=== PATIENT | female | born 1970 | race Two or more races ===

== ENCOUNTER 2024-03-05 12:29 | Outpatient (REF) | payer OTHER, SELFPAY ==
--- NOTE | ~2024-03-05 | XR_ITS ---
EXAMINATION: XR PELVIS CLINICAL INFORMATION: Pelvic and hip pain COMPARISON: None available. TECHNIQUE: AP view of the pelvis. FINDINGS: No fracture. Hip joint spaces are maintained. Alignment is anatomic. Sacroiliac joints and pubic symphysis are normal. No abnormal soft tissue calcifications. XR/XR pelvis 1-2V IMPRESSION: Normal pelvis.
== END 2024-03-05 12:30 | disposition home or self-care (01) ==
LOC: HO.HOSX 12:29
PROVIDERS: Visit Provider Orthopaedic Surgery
DX: M25.559 Pain in unspecified hip (principal)
CPT/HCPCS: 72170

== ENCOUNTER 2024-03-05 14:22 | Outpatient (AMB) | payer OTHER, SELFPAY ==
--- NOTE | 2024-03-05 14:23 | MHC.OFFVIS ---
Vital Signs 03/05/24 14:50 Height 4 ft 11 in Weight 165 lb BMI 33.3 Intake Visit Reasons: N/P LT hip O.A pain Allergies No Known Allergies Allergy (Verified 03/05/24 14:50) HPI HPI N/P LT hip O.A pain : Details: Cristina is a 53 year old female who presents today for a new patient appointment with complaints of left hip pain. Patient reports that she was previously booked for a HORTENSIA with Sindi that was cancelled due to insurance. She was later seen with RAFFAELE, who injected the hip. The injection was not sufficiently helpful. She has pain with ADOL, pain increased with prolonged standing, walking and climbing. 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 Resp Other: No audible wheezing Effort & Inspection: normal respiratory effort Cardio Other: Radial pulse palpable with no rythmic abnormalities Back/Spine/Pelvis Cervical Spine: normal cervical lordosis Skin General skin exam: no rashes or lesions noted Neuro General: no focal motor deficits Extrem Other: Positive gait antalgia Positive Stinchfield left hip Positive impingement left hip Psych Appearance: grossly normal and well kempt Mental Status: mental status grossly normal Speech and movement: Normal speech and movement present Affect: normal affect Attitude: cooperative Results Reviewed Results Reviewed: I personally reviewed relevant radiographs. Severe left hip osteoarthritis Moderate right hip osteoarthritis Assessment & Plan Assessment & Plan (1) Osteoarthritis of left hip: Code(s): M16.12 - Unilateral primary osteoarthritis, left hip Category: Medical Plan: This is a 53-year-old woman with left hip osteoarthritis. This has been longstanding and not improved with conservative measures including therapy, NSAIDs and injections. She has been scheduled for arthroplasty but her insurance has changed and so she has been unable to get this done. Feels quality of her life is diminished. Based on her history, physical exam and x-rays I recommend hip arthroplasty. I explained the procedure to her. I explained the risks, benefits and alternatives including, but not limited to the risk of infection, dislocation, fracture as well as medical complications associated with surgery. She expressed understanding and we will proceed forward accordingly. Orders: Orders XR pelvis 1-2V 03/05/24 M25.559 - Pain in unspecified hip Coding Level of Care Code New Pt Level 4 (44650) Diagnoses Osteoarthritis of left hip M16.12
[2024-03-05 14:50] VITALS: BMI 33.3
== END 2024-03-05 15:30 | disposition home or self-care (01) ==
PROVIDERS: PCP Nurse Practitioner; Visit Provider Orthopaedic Surgery
DX: M16.12 Unilateral primary osteoarthritis, left hip (principal)
CPT/HCPCS: 99204

== ENCOUNTER → 2024-05-25 10:40 | Outpatient (BNVA) | payer OTHER, SELFPAY | PROVIDERS: PCP Nurse Practitioner | DX: Z01.818 Encounter for other preprocedural examination (principal) ==

== ENCOUNTER 2024-06-12 | Outpatient (REF) | payer OTHER, SELFPAY ==
[2024-06-12 10:04] VITALS: BP 159/83; PULSE 67; RESP 18; O2SAT 100; BMI 32.6
[2024-06-12 12:07] LABS: MRSA Nasal PCR NEGATIVE (Negative); SA Nasal PCR POSITIVE (Negative)
== END 2024-06-12 00:01 | disposition home or self-care (01) ==
LOC: HO.PAT
PROVIDERS: Physician Assistant; PCP Nurse Practitioner; Visit Provider Orthopaedic Surgery
DX: Z01.818 Encounter for other preprocedural examination (principal); M16.12 Unilateral primary osteoarthritis, left hip
CPT/HCPCS: 86850; 86900; 86901; 87640; 87641

== ENCOUNTER 2024-09-17 12:46 | Outpatient (AMB) | payer OTHER, SELFPAY ==
[2024-09-17 12:57] VITALS: BMI 32.6
--- NOTE | 2024-09-17 12:57 | A.OFFVIS_ITS ---
Vital Signs 09/17/24 12:57 Height 5 ft Weight 167 lb BMI 32.6 Intake Visit Reasons: L HORTENSIA: completed PT; NE request visit B4 surg Intake Note: Cristina is a 54 year old female who presents today for a follow up of her Left Hip OA, she is booked for Left HORTENSIA 12/04/24. Allergies No Known Allergies Allergy (Verified 05/25/24 11:03) HPI HPI L HORTENSIA: completed PT; NE request visit B4 surg: Details: This is here for her left hip. She has a hip replacement scheduled but wanted to ask some questions prior. She continues to have groin pain and be unable to ambulate comfortably. She has tried physical therapy and NSAIDs and injections and all these have been only briefly helpful. She feels the quality of her life is diminished. 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 Positive gait antalgia left hip. Dorsalis pedis pulse 2 +. Results Reviewed Results Reviewed: I personally reviewed relevant radiographs. There is femoral head over coverage with bony prominence of the head neck junction consistent with moderate osteoarthritis. Assessment & Plan Assessment & Plan (1) Osteoarthritis of left hip: Code(s): M16.12 - Unilateral primary osteoarthritis, left hip Category: Medical Plan: This is a 54-year-old woman with long, several years, of left hip pain. Injections and therapy and NSAIDs all help but only briefly. She feels she can not complete daily activities without pain and we have elected to proceed forward with hip replacement. I discussed with her the risks, benefits and alternatives to this. I explained the risk of infection, dislocation, fracture as well as medical complications associated with surgery. She expressed understanding and we will proceed forward accordingly. Coding Level of Care Code Est Pt Level 4 (67785) Diagnoses Osteoarthritis of left hip M16.12
== END 2024-09-17 15:11 | disposition home or self-care (01) ==
PROVIDERS: PCP Nurse Practitioner; Visit Provider Orthopaedic Surgery
DX: M16.12 Unilateral primary osteoarthritis, left hip (principal)
CPT/HCPCS: 99214

== ENCOUNTER 2024-11-30 14:10 | Outpatient (AMB) | payer OTHER, SELFPAY ==
--- NOTE | 2024-11-30 14:28 | A.OFFVIS_ITS ---
Vital Signs 11/30/24 14:29 Height 5 ft Weight 167 lb BMI 32.6 Intake Visit Reasons: Pre-Op: L HORTENSIA w/NE 12/05/24 Intake Note: Cristina is a 54 year old female who presents today for a pre-operative visit; scheduled for left total hip arthroplasty, DOS: 12/05/24. Consents reviewed and signed in office today. Allergies No Known Allergies Allergy (Verified 11/30/24 14:32) Medication List - Last Reconciled 11/30/24 by Gracie Pineda PA-C [Raised toilet seat As directed] [STEP STOOL As directed] walker Folding Front wheeled walker HPI Comments Details: Ms Weldon presents to the office today for preop visit. She is scheduled for left total hip arthroplasty with Dr. Staton. She continues to have ongoing pain and difficulty with ambulation in the left hip, which is affecting her quality of life; therefore, she has elected to move forward with surgery. [facility] Medical History Anxiety Osteoarthritis Vitamin D deficiency Arthritis Surgical History History of bladder suspension procedure Hx of umbilical hernia repair Hx of hysterectomy Social History (Updated 11/02/24 @ 14:09 by Germaine Bolden RN) Household Members Other:: brother Housing: House Are you a primary youth care professional to a significant other at home: No Do you presently have visiting nurse or other home services: No 75 years or older and lives alone: No Patient Tobacco Use Status: Current everyday Tobacco user Tobacco use type: Cigarette Cigarettes Per Day: 2 Second Hand Smoke Exposure: No Substance Use Type: Marijuana Current occupational status: employed 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 Review of Systems Const All systems reviewed & are unremarkable except as noted in HPI and below Physical Exam Vital Signs: BMI result Body Mass Index 32.6 Const General: cooperative, healthy appearing, comfortable, no acute distress, well developed and alert Orientation/consciousness: patient oriented x3 HEENT Head: Yes normal to inspection, Yes normocephalic and Yes atraumatic Eyes General: appearance normal, both eyes and all related structures Neck Neck: Yes normal visual inspection and Yes no lymphadenopathy Resp Effort & Inspection: normal respiratory effort and able to speak in complete sentences Cardio Rate: regular rate Peripheral pulses: Peripheral pulses 2+ throughout GI Inspection: Yes normal to inspection Palpation (GI): Soft to palpation Skin General skin exam: no rashes or lesions noted Neuro General: patient oriented x3 Extrem Other: Positive impingement test left hip. Positive gait antalgia left hip. Dorsalis pedis pulse 2 +. Psych Appearance: grossly normal Mental Status: mental status grossly normal Results Reviewed Results Reviewed: Xrays were obtained in the office today and personally reviewed by me of the left hip for surgical planning Assessment & Plan Assessment & Plan (1) Osteoarthritis of left hip: Code(s): M16.12 - Unilateral primary osteoarthritis, left hip Category: Medical Plan: I discussed in detail the procedure and what to expect pre and post operatively. We discussed the risks, benefits and alternatives to the surgery as well as the rehabilitation course. The risks; which include, but are not limited to infection, bleeding, nerve injury, ongoing pain, swelling, and stiffness, perioperative risk of injury to bones and soft tissues, and blood clots. I?ve answered all questions and with their understanding they have consented to move forward with Left total hip arthroplasty with Dr. Staton Orders: Orders XR hip LT min 2V Today M25.559 - Pain in unspecified hip Medications: Refilled walker Folding Front wheeled walker 1 ea 0RF [STEP STOOL] As directed 1 ea 0RF M16.12 - Unilateral primary osteoarthritis, left hip [Raised toilet seat] As directed 1 ea 0RF Coding Level of Care Code New Pt Level 3 (26488) Complex EM visit Add On G2211 Diagnoses Osteoarthritis of left hip M16.12
[2024-11-30 14:29] VITALS: BMI 32.6
--- OUTSIDE RECORDS SUMMARY | 2024-11-30 14:30 | XMS_ITS | Encounter Summary ---
Author Organization [facility] Address [address] [place] [address] Care Team Providers Care Career Placement Services Counselor Name Role Phone Lata Grove NP Primary Care Provider Encounter Details Date Type Department Care Team (Latest Contact Info) Description 11/29/2024 2:20 PM EST Telemedicine Visit [id number] [place] [id number] Lata Grove NP [address] [place], [place] [id number] Chronic frontal sinusitis (Primary Dx) Social History Tobacco Use Types Packs/Day Years Used Date Smoking Tobacco: Some Days Cigarettes 0.1 10 Smokeless Tobacco: Never Alcohol Use Standard Drinks/Week Comments Yes 0 (1 standard drink = 0.6 oz pur e alcohol) Occasional Social Connections Answer Date Recorded Connectedness 1 08/20/2024 Financial Resource Strain Answer Date R ecorded Financial Resource Strain 1 2023 Stress Answer Date Recorded Stress 1 08/20/2024 Physical Activity Answer Date Recorded Physical Activity 0 07/17/2019 Food Insecurity Answer Date Recorded Food 1 08/20/2024 Transportation Needs Answer Date Record ed Transportation 1 08/20/2024 Housing Stability Answer Date Recorded Housing 1 08/20/2024 Safety and Environment Answer Date Mustapha rded Safety 1 02/08/2024 Utilities Answer Date Recorded Utilities 1 08/20/2024 Employment Answer Date Recorded Stress 0 07/14/2023 Comments No Sex and Gender Information Value Date Recorded Sex Assigned at Female 07/17/2019 2:38 PM PDT Legal Sex Female 8:14 AM PDT Gender Identity Female 07/17/2019 2:38 PM PDT Sexual Orientation Straight 07/17/2019 2: 38 PM PDT 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 No / Unsure 11/05/2024 1:43 PM EST documented as of this encounter Progress Notes * Lata Grove NP - 11/29/2024 2:46 PM EST Subjective: Cristina YANCEY is a 54 year old female here for No chief complaint on file. The following visit was conducted via Telephone. I educated the patient on the terms of telehealth and the patient verbally consented to this telemedicine visit. The patient was identified using their Name, and [facility] ID. I identified myself as Lata Grove NP from [facility]. It was conducted in a private space to protect HIPPA sensitive information. Precautions were takento provide confidentiality and security and patient was made aware of privacy considerations. The patients location was obtained and is Pts home The patient was notified that the services were being provided from [facility]). The patient was notified how they can see a clinician in- person in the event of an emergency or if otherwise needed. Visit START TIME 247p END TIME 254p Rotational Moulding Operator used during visit? No Pt having technical issues with video HPI: Cristina YANCEY is 54 year old female is here for sinus symptoms. Has been experiencing a sinus infection, which initially got better but still has some symptoms. No listed allergies. Upcoming surgery is scheduled for Tuesday. Mentioned that climate change is causing issues with allergies and sinuses. No feelings of depression reported. Pharmacy location is [facility] Depression screening:DEPRESSION FU PROVIDED ( CMS-2): Counseling / education in visit and Assessed, follow-up as needed ROS Review of Systems See HPI, remainder of ROSs negative or non-contributory. PMHx Patient Active Problem List Diagnosis Arthritis Vitamin D deficiency Chronic left hip pain Primary osteoarthritis of left hip Osteoarthritis of right knee Class 1 obesity due to excess calories with serious comorbidity and body mass index (BMI) of 33.0 to 33.9 in adult Varicose veins of both lower extremities Medications Current Outpatient Medications on File Prior to Visit Medication Sig Dispense Refill traMADoL (ULTRAM) 50 mg tablet Take 1 Tablet by mouth 4 (four) times daily as needed for pain 20 Tablet 0 comp.stocking,thigh,long,large Please dispense 1 pairs of compression stockings 15 mmhg . lifetime 3 Each 11 No current facility-administered medications on file prior to visit. Objective: GENERAL/Psych: Pt sounds happy w/normal, age appropriate thought process Remaining physical exam components deferred d/t nature of telehealth encounter. Assessment/Plan: Cristina YANCEY is 54 year old female is here for J32.1 Chronic frontal sinusitis (primary encounter diagnosis) Plan : AMOXICILLIN 500 MG-POTASSIUM CLAVULANATE 125 MG TABLET - Take 1 Tablet by mouth 2 (two) times daily for 7 days Follow Up: No follow-ups on file. documented in this encounter Miscellaneous Notes * Patient Instructions - Lata Grove NP - 11/29/2024 2:54 PM EST If you are not able to keep your appointment please call 24-48 hours before your appointment to cancel or reschedule. documented in this encounter Plan of Treatment Not on file documented as of this encounter Visit Diagnoses Diagnosis Chronic frontal sinusitis- Primary documented in this encounter Additional Health Concerns Assessment Noted Time PHQ-9 Depression Total Score: 0 11/29/19 25 2:53 PM PST documented as of this encounter Care Teams Career Placement Services Counselor Relationship Specialty Start Date End Date Lata Grove NP [address] [place] [address] PCP - General Internal Medicine 07/14/22 documented as of this encounter
--- OUTSIDE RECORDS SUMMARY | 2024-11-30 14:30 | XMS_ITS | Encounter Summary ---
Author Organization [facility] Address [address] [place] [address] Care Team Providers Care Internal Wholesaler Name Role Phone Lata Grove NP Primary Care Provider Reason for Visit * Reason Comments Pre-op Clearance Encounter Details Date Type Department Care Team (Latest Contact Info) Description 11/05/2024 2:00 PM EST Office Visit [facility] [address] [place] [phone] Lata Grove NP [address] [facility] [[email or web address] 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 No / Unsure 11/05/2024 1:43 PM EST documented as of this encounter Last Filed Vital Signs Vital Sign Reading Time Taken Comments Blood Pressure 128/80 11/05/2024 2:01 PM EST Pulse 98 11/05/2024 2:01 PM EST Temperature 36.6 ??C (97.9 ??F) 11/05/2024 2:01 PM ES T Respiratory Rate 18 11/05/2024 2:01 PM EST Oxygen Saturation 99% 11/05/2024 2:01 PM EST Inhaled Oxygen Concentration - - Weight 75.3 kg (166 lb) 11/05/2024 2:01 PM EST Height 152.4 cm (5') 11/05/2024 2:01 PM EST Body Mass Index 32.42 11/05/2024 2:01 PM EST documented in this encounter Progress Notes * Lata Grove NP - 11/05/2024 2:31 PM EST I have reviewed the patient???s medical history, physical exam findings, laboratory and/or images, and the assessment and plan as documented in above mentioned note. I am in agreement with the plan of care as documented in the note by Lester MARRERO student * Lester Domingo - 11/05/2024 2:00 PM EST Subjective: CC: Left total hip replacement pre-op Bag End Sewer: None, provider speaks patient's familiar language HPI: Cristina YANCEY is a 54 year old female patient who presents to the office today for preoperative evaluation. She has a left total hip replacement scheduled with Dr. Staton at [facility]. Patient denies any history of respiratory problems, including asthma, wheezing, pneumonia, COPD, shortness of breath, or obstructive sleep apnea. She is a current smoker, but is working on smoking cessation. She reports smoking 2 cigarettes/day. Also reports a family history of COPD in her mother. Recently experienced stress due to her father???s hospitalization for heart attack this week. Denies any history of cardiac complications, arrhythmia, murmur, seizures, or stroke. Denies history of drug oralcohol abuse. Denies any history of infections, including tuberculosis, hepatitis B or C, or HIV. Used ibuprofen in September 2024 due to inability to take pain medications but is not currently taking tramadol or using compression stockings. Denies any history of bleeding disorders or adverse reactions to anesthesia. Type of surgical procedure: Left total hip replacement Name of surgeon: Magnus Staton MD Date of procedure: 12/05/2024 Pre-operative testing requested by surgeon: Labs, EKG Pre-operative risks Respiratory limitations (hx asthma, wheezing, pnuemonia, COPD, SOB, cough, SUDARSHAN, smoking hx, lung CAhx, uses O2):Yes - Current smoker (2 cigarettes/day) Cardiac limitations (hx CA, CABG, pacemaker, arrhythmias, murmur): No Neuro (hx seizures, CVA): No Previous surgical hx: Past Surgical History: Procedure Laterality Date ABDOMINAL HERNIA REPAIR CYSTOCELE REPAIR HYSTERECTOMY, PARTIAL Hx blood clots, bleeding disorders, or anti-coagulants: No Hx adverse reaction to anesthesia: No H/o drug or alcohol abuse: No H/o infections disease (TB, Hepatitis, HIV): No Medications pt is on: Current Outpatient Medications Medication Sig Dispense Refill traMADoL (ULTRAM) 50 mg tablet Take 1 Tablet by mouth 4 (four) times daily as needed for pain 20 Tablet 0 comp.stocking,thigh,long,large Please dispense 1 pairs of compression stockings 15 mmhg . lifetime 3 Each 11 No current facility-administered medications for this visit. Patient Active Problem List Diagnosis Arthritis Vitamin D deficiency Chronic left hip pain Primary osteoarthritis of left hip Osteoarthritis of right knee Class 1 obesity due to excess calories with serious comorbidity and body mass index (BMI) of 33.0 to 33.9 in adult Varicose veins of both lower extremities No Known Allergies Review of systems Review of Systems Remainder ROS: See HPI, systems reviewed and are otherwise negative or noncontributory. Objective: Vitals: 11/05/24 1401 BP: 128/80 Pulse: 98 Resp: 18 Temp: 97.9 ??F (36.6 ??C) TempSrc: Oral SpO2: 99% Weight: 166 lb (75.3 kg) Height: 5' (1.524 m) Body mass index is 32.42 kg/m??. Physical Exam Lifestyle measures:BMI follow up plan: The patient was counseled regarding nutrition and physical activity. Tobacco Intervention:provided tobacco cessation counseling provided smoking cessation counseling Depression screen: PHQ-9 Total Score (Auto Calculated) 0 at 08/20/2024 1:00 PM 11/05/2024 2:01 PM How many times in the past year have you had 4 or more drinks in a day? NONE How many times in the past year have you used a recreational drug or used a prescription medicationfor nonmedical reasons? NONE The 10-year ASCVD risk score (Ehsan FAYE, et al., 2019) is: 4% Assessment and Plan: Cristina YANCEY is a 54 year old female patient who was seen today for evaluation of preop clearance M16.12 Primary osteoarthritis of left hip (primary encounter diagnosis) Plan : BLOOD COUNT COMPLETE AUTOMATED - Patient has a left total hip replacement scheduled for 12/05/24. - Ordered CBC to check on RBC. Previous 05/2024 CBC showed RBC of 3.57. - No ECG abnormalities today. Normal sinus rhythm. Plan Perioperative surgical recommendations: No absolute contraindication to surgery . No blood things before surgery, concults with surgeon fo rany medication to hold if needed documented in this encounter Miscellaneous Notes * Patient Instructions - Lata Grove NP - 11/05/2024 2:32 PM EST If you are not able to keep your appointment please call [phone] hours before your appointment to cancel or reschedule. documented in this encounter Plan of Treatment Scheduled Orders Name Type Priority Associated Diagnoses Orde r Schedule BLOOD COUNT COMPLETE AUTOMATED Lab Routine Primary osteoarthritis of left hip Ordered: 11/05/2024 documented as of this encounter Visit Diagnoses Diagnosis Primary osteoarthritis of left hip- Primary Primary localized osteoarthrosis, pelvic region and thigh documented in this encounter Additional Health Concerns Assessment Noted Time PHQ-9 Depression Total Score: 0 08/20/20 24 1:00 PM PDT documented as of this encounter Care Teams Internal Wholesaler Relationship Specialty Start Date End Date Lata Grove NP [facility] [id number] PCP - General Internal Medicine 07/14/22 documented as of this encounter
--- OUTSIDE RECORDS SUMMARY | 2024-11-30 14:30 | XMS_ITS | Encounter Summary ---
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 No / Unsure 11/05/2024 1:43 PM EST documented as of this encounter Plan of Treatment Not on file documented as of this encounter Visit Diagnoses Not on filedocumented in this encounter Additional Health Concerns Assessment Noted Time PHQ-9 Depression Total Score: 0 08/20/20 24 1:00 PM PDT documented as of this encounter Care Teams [employer] Weapons Equipment Operator Relationship Specialty Start Date End Date Lata Grove NP [address] [place] [address] PCP - General Internal Medicine 07/14/22 documented as of this encounter
--- OUTSIDE RECORDS SUMMARY | 2024-11-30 14:31 | XMS_ITS | Clinical Summary ---
[facility] Address [address] [place] [address] Care Team Providers Care Civil Structural Designer Name Role Phone Lata Grove Primary Care Provider [phone] Surgical History Surgery Date Site/Laterality Comments TUBAL LIGATION Bilateral PROCEDURE: HISTORICAL TUBAL LIGATION BLADDER SUSPENSION PROCEDURE: HISTORICAL BLADDER SUSPENSION HERNIA REPAIR PROCEDURE: HISTORICAL HERNIA REPAIR/UMB Social History Tobacco Use Types Packs/Day Years Used Date Smoking Tobacco: Every Day Smokeless Tobacco: Never Alcohol Use Standard Drinks/Week Comments Not Currently 0 (1 standard drink = 0.6 oz pur e alcohol) Sex and Gender Information Value Date Recorded Sex Assigned at Not on file Gender Identity Not on file Sexual Orientation Not on file Obstetrics History Last Filed Vital Signs Vital Sign Reading Time Taken Comments Blood Pressure - - Pulse - - Temperature - - Respiratory Rate - - Oxygen Saturation - - Inhaled Oxygen Concentration - - Weight 76.7 kg (169 lb) 03/08/2023 1:03 PM EDT Height 152.4 cm (5') 03/08/2023 1:03 PM EDT Body Mass Index 33.01 03/08/2023 1:03 PM EDT Plan of Treatment Health Maintenance Due Date Last Done Comments Breast Cancer Screening 1968 Pneumococcal Vaccine: Pediat rics (0 to 5 Years) and At-Risk Patients (6 to 64 Years) (1 of 2 - PCV) 1974 Hepatitis B Vaccines (1 of 3 - 19+ 3-dose series) 1987 Cervical Cancer Screening: P ap Smear 1989 Zoster Vaccines (1 of 2) 2018 Colorectal Cancer Screening: Colonoscopy 09/26/2022 Depression Screening 09/26/2022 HIV Screening 09/26/2022 Hepatitis C Screening 09/26/2022 Social Influencers of Health Screening 09/26/2022 COVID-19 Vaccine ( - 2023-2 5 season) 2024 Influenza Vaccine (#1) 2024 DTaP,Tdap,and Td Vaccines (2 - Td or Tdap) 05/14/2025 05/14/2015 HIB Vaccines Aged Out No longer eligi ble based on patient's age to complete this topic HPV Vaccines Aged Out No longer eligi ble based on patient's age to complete this topic Hepatitis A Vaccines Aged Out No long er eligible based on patient's age to complete this topic IPV Vaccines Aged Out No longer eligi ble based on patient's age to complete this topic MMR Vaccines Aged Out No longer eligi ble based on patient's age to complete this topic Meningococcal ACWY Vaccine Aged Out N o longer eligible based on patient's age to complete this topic RSV Immunization Patients Un iris 20 months Aged Out No longer eligible b ased on patient's age to complete this topic Varicella Vaccines Aged Out No longer eligible based on patient's age to complete this topic Care Teams Civil Structural Designer Relationship Specialty Start Date End Date Lata Grove PCP - General 06/06/24
--- OUTSIDE RECORDS SUMMARY | 2024-11-30 14:31 | XMS_ITS | Clinical Summary ---
Author Organization [facility] Address [address] [place] [address] Care Team Providers Care Planetarium Sky Show Technician Name Role Phone Lata Grove TONY Primary Care Provider Source Comments PLEASE NOTE, if this patient is a minor, it may be UNLAWFUL to discuss sensitive information that is contained in these records (such as FAMILY PLANNING, MENTAL HEALTH or SUBSTANCE ABUSE) with the minor patient's parent or other person without the patient's specific authorization.[facility] Allergies No known active allergies Medications comp.davian austin,indiana,largeIndica tions:Varicose veins of both lower extremities, unspecified whether complicated Please dispense 1 pairs of compression stockings 15 mmhg . lifetime 3 Each 11 08/20/20 24 Active traMADoL (ULTRAM) 50 mg tabletIndications: Primary osteoarthritis of right knee,Primary osteoarthritis of left hip Take 1 Tablet by mouth 4 (four) times daily as needed for pain 20 Tablet 10/08/20 24 Active amoxicillin-pot clavulanate (AUGMENTIN) 500-125 mg per tabletIndications: Chronic frontal sinusitis Take 1 Tablet by mouth 2 (two) times daily for 7 days 14 Tablet 11/29/19 25 025 Active Active Problems Problem Noted Date Diagnosed Date Osteoarthritis of right knee 08/20/2024 Class 1 obesity due to exces s calories with serious comorbidity and body mass index (BMI) of 33.0 to 33.9 in adult 08/20/2024 Varicose veins of both lower extremities 024 Chronic left hip pain 02/08/2024 Primary osteoarthritis of left hip 02/08/2024 Overview (08/20/2024): 08/20/24: at [place], with , going to [facility] she will have surgery post therapy in 2 week tari hester. Vitamin D deficiency 01/04/2021 Arthritis 07/17/2019 Overview (10/07/2022): 10/07/22: Xray of hip shows arthritis, treatment includes. She will like to hold off on inj and surgery at this time. Taking naproxen when pain is severe Encounters Date Type Department Care Team Description 11/29/2024 2:20 PM EST Telemedicine Visit [facility] [address] [place] [id number] Lata rGove, PHARMACY OPERATIONS MANAGER Chronic frontal sinusitis (Primary Dx) 11/05/2024 2:00 PM EST Office Visit [facility] [address] [place] [id number] Lata Grove, PHARMACY OPERATIONS MANAGER Primary osteoarthritis of left hip (Primary Dx) 11/05/2024 Travel 10/08/2024 3:20 PM EST Office Visit [facility] [address] [place] [id number] Lata Grove, PHARMACY OPERATIONS MANAGER Frequency of urination (Primary Dx); Pelvic pressure in female; Primary osteoarthritis of right knee; Primary osteoarthritis of left hip; Acute cystitis without hematuria 10/08/2024 Travel from Last 3 Months Immunizations Name Administration Dates Next Due Flu, Multi Dose 0.5 ML 08/05/2020 Flu, Preservative Free 07/14/2023,10/07/2022 Hep B,adult,adjuvanted (HEPLISAV) 02/08/2024 Influenza (FLUBLOK),recombinant,injectable,preservative Free 08/20/2024 PNEUMOCOCCAL CONJUGATE PCV 20 (Prevnar) 02/08/20 PNEUMOCOCCAL POLYSACCHARIDE PPV23 12/25/2020 TDAP 07/17/2019,05/14/2015 ZOSTER VACCINE, RECOMBINANT (SHINGRIX) 3,12/25/2020 Family History Medical History Relation Name Comments Heart attack Father Thyroid Disease Father Cancer Other Relation Name Status Comments Brother Alive 2 brothers Father Alive Mother Alive artritis,copd Other Sister Alive 2 sister Social History Tobacco Use Types Packs/Day Years [...] 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 No / Unsure 11/05/2024 1:43 PM EST Last Filed Vital Signs Vital Sign Reading [...] Mass Index 32.42 11/05/2024 2:01 PM EST Plan of Treatment Health Maintenance Due Date Last Done Comments HPV Screening 1968 Pap + HPV [address] Colonography 2013 Colonoscopy 2013 Colorectal Cancer Screening 2013 FIT/gFOBT 2013 Fecal DNA 2013 Flexible Sigmoidoscopy 2013 Imm-Hepatitis B (2 of 2 - Cp G 2-dose series) 03/07/2024 02/08/2024 [id number] ( season) 2024 021 Depression Monitoring 02/26/2025 11/29/2024 , 08/20/2024, 06/11/2024, Additional history exists Breast Cancer Screening (Mammogram) 03/30/2025 03/30/2024, 03/07/2023, 01/22/2022 Annual Preventive Care Visit 08/20/2025, 10/07/2022, 12/25/2020 Hypertension Screening (#1) 11/05/2025 Tobacco Cessation Counseling (#1) 11/05/2025 11/05/2024, 06/11/2024, 12/25/2020 Diabetes Screening 06/11/2027 06/11/2024, 0 06/11/2024, 08/03/2022, Additional history exists Lipid Screening 11/05/2027 11/05/2024, 07/24, 12/15/2020, Additional history exists Imm-DTaP/Tdap/Td (3 - Td or Tdap) 07/17/2029 019, 05/14/2015 Hepatitis C Screening Completed 12/15/2020 HIV Screening Completed 10/07/2022, 11/25, 07/19/2019 Imm-Zoster, Recombinant Completed 02/04/2023, 12/25 Imm-Pneumococcal Completed 02/08/2024, 12/25/2020 Imm-Influenza Completed 08/20/2024, 06/25, 10/07/2022, Additional history exists Alcohol and Drug Screen Completed 11/05/19, 08/20/2024, 06/11/2024, Additional history exists Cervical Ablation/Cold-Knife Conization Discontinued Cervical Cancer Screening Discontinued Cervical Cryotherapy Discontinued Colposcopy Discontinued Endometrial Biopsy Discontinued Excision/Leep Discontinued HPV Genotyping Discontinued Vaginal Pap Discontinued Vulvoscopy Discontinued Procedures Procedure Name Priority Date/Time Associated Diagnosis Comments CARD SCANNED DOCUMENT 11/06/2024 3:00 AM EST LIPID PANEL Routine 11/05/2024 2:29 PM EST Routine general medical examination at a health care facility Class 1 obesity due to excess calories with serious comorbidity and body mass index (BMI) of 33.0 to 33.9 in adult URINE CULTURE W ID & SENS Routine 10/08/2024 3:16 PM EST RFLX - REFLEXIVE URINE CULTURE Routine 10/08/2024 3:16 PM EST URINALYSIS, COMPLETE W/REFLEX TO CULTURE Routine 10/08/2024 3:16 PM EST Frequency of urination Pelvic pressure in female URINALYSIS, MULTISTIX (POCT) Routine 10/08/2024 3:07 PM EST Frequency of urination REFERRAL TO VASCULAR SURGERY Routine 10/08/2024 3:00 AM EST Varicose veins of both lower extremities, unspecified whether complicated REFERRAL SCANNED DOCUMENT 09/17/2024 3:00 AM EST COMPREHENSIVE METABOLIC PANEL Routine 06/11/2024 3:43 PM EDT Preoperative clearance REFERRAL FOR MAMMOGRAM Routine 3:00 AM EDT Breast cancer screening by mammogram HIV 1/2 AG & AB W/RFLX (4TH GEN) Routine 10/07/2022 3:21 PM EST Screening examination for venereal disease HEPATITIS C DIAGNOSTIC (LLMM) Routine 12/15/2020 10:59 AM EST Need for hepatitis C screening test from Last 3 Months or Most Recently Relevant to Health Maintenance Results * CARD SCANNED DOCUMENT (11/06/2024 3:00 AM EST) 11/06/2024 3:00 AM EST us Lata Gorve PHARMACY OPERATIONS MANAGER SCAN ECGS Final Result * (ABNORMAL) LIPID PANEL (11/05/2024 2:29 PM EST) CHOLESTEROL, TOTAL 140 <200 mg/dL [facility] HDL CHOLESTEROL 49(L) > OR = 50 mg/dL [facility] TRIGLYCERIDES 83 <150 mg/dL [facility] LDL-CHOLESTEROL 74 99 mg/dL (calc) [facility] Comment: Reference range: <100 Desirable range <100 mg/dL for primary prevention; ?? <70 mg/dL for patients with CHD or diabetic patients with > or = 2 CHD risk factors. LDL-C is now calculated using the Kenisha calculation, which is a validated novel method providing better accuracy than the Friedewald equation in the estimation of LDL-C. Gildardo RENTERIA et al. SHANTEL. 2013;310(19): 2183-9252 (http://education.Snaptiva/faq/YVB445) CHOL/HDLC RATIO 2.9 <5.0 (calc) [facility] NON-HDL CHOLESTEROL 91 <130 mg/dL (calc) [facility] Comment: For patients with diabetes plus 1 major ASCVD risk factor, treating to a non-HDL-C goal of <100 mg/dL (LDL-C of <70 mg/dL) is considered a therapeutic option. Blood Blood / Unknown 11/05/2024 2 :29 PM EST 11/05/2024 2:30 PM EST Narrative [facility] - 11/06/2024 5:30 AM EST FASTING:NO Lata Grove PHARMACY OPERATIONS MANAGER LAB - BLOOD DRAW Final Resul t [facility] [address] [address], [facility] [address] [phone] * (ABNORMAL) URINE CULTURE W ID & SENS (10/08/2024 3:16 PM EST) Pathologist [facility] CULTURE See Note(A) [facility] Comment: ??CULTURE, URINE, ROUTINE ?Micro Number: ?[id number] ??Test Status: ? Final ??Specimen Source: ?? Urine ??Specimen Quality: ??Adequate ??Result: ?Greater than 100,000 CFU/mL of Escherichia coli ?E.coli ?INT ?? ADAMS ?? AMOX/CLAVULANATE ? I ? 16 ?? AMP/SULBACTAM ?R ? >=32 ?? CEFAZOLIN ?R ? 8 1 ?? CEFEPIME ? S ? <=0.12 ?? CEFTAZIDIME ?S ? <=1 ?? CEFTRIAXONE ?S ? <=0.25 ?? CIPROFLOXACIN ?S ? 0.12 ?? GENTAMICIN ? R ? >=16 ?? IMIPENEM ? S ? <=0.25 ?? LEVOFLOXACIN ? S ? 0.25 ?? MEROPENEM ?S ? <=0.25 ?? NITROFURANTOIN ? S ? <=16 ?? PIP/TAZOBACTAM ? I ? 64 ?? TRIMETHOPRIM/SULFA ? R ? >=320 S = Susceptible ??I = Intermediate ??R = Resistant ??NS = Not susceptible SDD = Susceptible Dose Dependent ??* = Not Tested ??NR = Not Reported NN = See Therapy Comments THERAPY COMMENTS ?Note 1: ?For uncomplicated UTI caused by E. coli, ?K. pneumoniae or P. mirabilis: Cefazolin is ?susceptible if ADAMS <32 mcg/mL and predicts ?susceptible to the oral agents cefaclor, cefdinir, ?cefpodoxime, cefprozil, cefuroxime, cephalexin ?and loracarbef. 10/08/2024 3:16 PM EST 10/09/2024 3:56 AM EST us Lata Grove NP LAB - NO BLOOD DRAW Final Re sult [facility] [address] [place] [id number], [facility] [address] [place] [phone] * (ABNORMAL) URINALYSIS, COMPLETE W/REFLEX TO CULTURE (10/08/2024 3:16 PM EST) COLOR YELLOW YELLOW [facility] APPEARANCE CLOUDY(A) CLEAR [facility] SPECIFIC GRAVITY 1.012 1.001 - 1.035 [facility] URINE PH 6.0 5.0 - 8.0 [facility] GLUCOSE NEGATIVE NEGATIVE [facility] BILIRUBIN NEGATIVE NEGATIVE [facility] KETONES NEGATIVE NEGATIVE [facility] OCCULT BLOOD 1+(A) NEGATIVE [facility] URINE PROTEIN NEGATIVE NEGATIVE [facility] NITRITE POSITIVE(A) NEGATIVE [facility] LEUKOCYTE ESTERASE 3+(A) NEGATIVE [facility] URINE LEUKOCYTES 20-40(A) 0 - 5 /HPF [facility] RBC 3-10(A) 0 - 2 /HPF [facility] SQUAMOUS EPITHELIAL CELLS 6-10(A) < OR = 5 /HPF [facility] BACTERIA MANY(A) NONE SEEN [facility] HYALINE CAST NONE SEEN NONE SEEN [facility] SEE NOTE See Below [facility] Comment: This urine was analyzed for the presence of WBC, RBC, bacteria, casts, and other formed elements. Only those elements seen were reported. Urine Urine specimen / Unknown 10/08/2024 3:16 PM EST 10/09/2024 3:56 AM EST Lata Grove PHARMACY OPERATIONS MANAGER LAB - NO BLOOD DRAW Edited [email or web address] Performing Organization Address [facility]/ZIP Co de Phone Number [facility] [address] [address], [employer] [address] [address] * RFLX - REFLEXIVE URINE CULTURE (10/08/2024 3:16 PM EST) REFLEXIVE URINE CULTURE See Below [employer] [facility] Comment:CULTURE INDICATED - RESULTS TO FOLLOW 10/08/2024 3:16 PM EST 10/09/2024 3:56 AM EST Lata Grove PHARMACY OPERATIONS MANAGER LAB - NO BLOOD DRAW Edited [employer]o Solarsi Performing Organization Address [facility] Co de Phone Number [facility] [address] [address], [employer] [address] [address] * (ABNORMAL) URINALYSIS, MULTISTIX (POCT) (10/08/2024 3:07 PM EST) URINE GLUCOSE NEGATIVE NEGATIVE [facility]- BACK OFFICE POCT URINE BILIRUBIN NEGATIVE NEGATIVE [facility]- BACK OFFICE POCT URINE KETONES NEGATIVE NEGATIVE [facility]- BACK OFFICE POCT URINE SPECIFIC GRAVITY 1.025 <=1.005 - >=1.030 [facility]- BACK OFFICE POCT URINE BLOOD TRACE HEMOLYZED(A) NEGATIVE [facility]- BACK OFFICE POCT URINE PH 5.5 5.0 - 8.5 [facility]- BACK OFFICE POCT URINE PROTEIN Negative Negative [facility]- BACK OFFICE POCT URINE UROBILINOGEN 0.2 0.2 - 1.0 E.U./dL [facility]- BACK OFFICE POCT URINE NITRITE NEGATIVE NEGATIVE [facility]- BACK OFFICE POCT URINE LEUKOCYTES MODERATE(A) NEGATIVE [facility]- BACK OFFICE POCT URINE COLOR YELLOW STRAW, YELLOW [facility]- BACK OFFICE POCT ODOR URINE Normal Normal [facility]- BACK OFFICE POCT CLARITY OF URINE CLOUDY(A) CLEAR [facility]- BACK OFFICE POCT Urine Urine specimen / Unknown 10/08/2024 3:07 PM EST us Lata Grove NP LAB - NO BLOOD DRAW Final Re sult [facility]- BACK OFF[facility] POCT * REFERRAL TO VASCULAR SURGERY (10/08/2024 3:00 AM EST) 10/08/2024 3:00 AM EST us Lata Grove NP REFERRAL Final Result * REFERRAL SCANNED DOCUMENT (09/17/2024 3:00 AM EST) 09/17/2024 3:00 AM EST us Lata Grove NP SCAN REFERRAL Final Result * (ABNORMAL) COMPREHENSIVE METABOLIC PANEL (06/11/2024 3:43 PM EDT) GLUCOSE 97 65 - 99 mg/dL [facility] Comment: ?Fasting reference interval UREA NITROGEN (BUN) 12 7 - 25 mg/dL [facility] CREATININE (blood) 0.47(L) 0.50 - 1.03 mg/dL [facility] EGFR 112 > OR = 60 mL/min/1. 73m2 [facility] BUN/CREATININE RATIO 26(H) 6 - 22 (calc) [facility] SODIUM 138 135 - 146 mmol/L [facility] POTASSIUM 3.9 3.5 - 5.3 mmol/L [facility] CHLORIDE 106 98 - 110 mmol/L [facility] CARBON DIOXIDE 27 20 - 32 mmol/L [facility] CALCIUM 9.1 8.6 - 10.4 mg/dL [facility] PROTEIN, TOTAL 6.8 6.1 - 8.1 g/dL [facility] ALBUMIN 4.1 3.6 - 5.1 g/dL [facility] GLOBULIN 2.7 1.9 - 3.7 g/dL (calc) [facility] ALBUMIN/GLOBULI N RATIO 1.5 1.0 - 2.5 (calc) [facility] BILIRUBIN, TOTAL 0.3 0.2 - 1.2 mg/dL [facility] ALKALINE PHOSPHATASE 105 37 - 153 U/L [facility] AST 15 10 - 35 U/L [facility] ALT 9 6 - 29 U/L [facility] Blood Blood / Unknown 06/11/2024 3 :43 PM EDT 06/11/2024 3:43 PM EDT Lata Grove NP LAB - BLOOD DRAW Edited Resu lt - Final [facility] [address] [address], [facility] [address] [phone] * REFERRAL FOR MAMMOGRAM (03/30/2024 3:00 AM EDT) 03/30/2024 3:00 AM EDT Esther Dumont PA-C IMG RFL MAMMO Edited Resul t - Final * HIV 1/2 AG & AB W/RFLX (4TH GEN) (10/07/2022 3:21 PM EST) HIV AG/AB, 4TH GEN NON-REAC TIVE NON-REAC TIVE [facility] Comment: HIV-1 antigen and HIV-1/HIV-2 antibodies were not detected. There is no laboratory evidence of HIV infection. PLEASE NOTE: This information has been disclosed to you from records whose confidentiality may be protected by state law. ??If your state requires such protection, then the state law prohibits you from making any further disclosure of the information without the specific written consent of the person to whom it pertains, or as otherwise permitted by law. A general authorization for the release of medical or other information is NOT sufficient for this purpose. ?? For additional information please refer to http://education.Immunovative Therapies.Verifico/faq/DZT843 (This link is being provided for informational/ educational purposes only.) The performance of this assay has not been clinically validated in patients less than 2 years old. Blood Blood / Unknown 10/07/2022 3 :21 PM EST 10/07/2022 3:22 PM EST Narrative [facility] - 10/10/2022 7:54 AM EST COLLECTION KIT GIVEN TO PATIENT. PATIENT ADVISED TO RETURN. Lata Grove NP LAB - BLOOD DRAW Final Resul t [facility] [address] [place] [address], [facility] [address] ([address]) [place] [address] * HEPATITIS C DIAGNOSTIC (LLMM) (12/15/2020 10:59 AM EST) HEPATITIS C VIRUS DIAGNOSTIC NEGATIVE NEGATIVE [facility] 12/15/2020 10:5 9 AM EST 12/15/2020 4:00 PM EST [facility] - 12/15/2020 5:50 PM EST [employer], [place] [address] Laser Beam Cutter - Pat Ferrer MD PT ID [id number] ORD# [id number] Esther Dumont PA-C LAB - BLOOD DRAW Edited Resu lt - Final [facility] [employer] [address], from Last 3 Months or Most Recently Relevant to Health Maintenance Insurance [employer] Care Teams Planetarium Sky Show Technician Relationship Specialty Start Date End Date Lata Grove NP [address] [place] [address] PCP - General Internal Medicine 07/14/22
== END 2024-11-30 14:46 | disposition home or self-care (01) ==
PROVIDERS: PCP Nurse Practitioner; Visit Provider Physician Assistant
DX: M16.12 Unilateral primary osteoarthritis, left hip (principal)
CPT/HCPCS: 99024

== ENCOUNTER 2024-11-30 14:10 | Outpatient (REF) | payer OTHER, SELFPAY ==
--- NOTE | ~2024-11-30 | XR_ITS ---
EXAMINATION: XR HIP 2 OR MORE VIEWS LEFT HISTORY: M25.559 - Pain in unspecified hip COMPARISON: Comparison is made with the prior examination of the pelvis dated 03/05/2024. FINDINGS: A single AP view of the pelvis and two views of the left hip are submitted. The bones are osteopenic. Moderate There is no fracture or dislocation. There is moderate to severe osteoarthritis, with joint space narrowing and osteophyte formation. The soft tissues are unremarkable. XR/XR hip LT min 2V IMPRESSION: Moderate to severe osteoarthritis. Electronically signed by: Thee Hall MD 11/30/2024 03:15 PM ADDIE
== END 2024-11-30 14:11 | disposition home or self-care (01) ==
LOC: HO.HOSX 14:10
PROVIDERS: PCP Nurse Practitioner; Visit Provider Physician Assistant
DX: Z01.818 Encounter for other preprocedural examination (principal); M25.512 Pain in left shoulder; M16.12 Unilateral primary osteoarthritis, left hip
CPT/HCPCS: 73502

== ENCOUNTER 2024-12-05 05:37 | Day surgery (SDC) | payer OTHER, SELFPAY ==
[2024-11-02 13:49] VITALS: BP 127/63; PULSE 77; RESP 16; BMI 32.2
--- NOTE | 2024-11-02 14:00 | P.CONAN_ITS ---
Documented by User: Estela Linn NP 12/04/24 12:42 HPI - Anesthesia Eval Consult details Narrative: 54yo F for Left Hip Total Replacement, 12/05/24 Medically optimized per PCP No recent illness No CP/SOB within limits of hip pain Otherwise healthy PMFSH Active Problems Active Problems: All Active Problems Osteoarthritis of left hip (Acute) Past Medical History Medical History Anxiety Osteoarthritis Vitamin D deficiency Arthritis Family History Family history of problems with anesthesia: No Surgical History Surgical History History of bladder suspension procedure Hx of umbilical hernia repair Hx of hysterectomy History of Problems with Anesthesia: No Social History Social History Household Members Other:: brother Housing: House Are you a primary direct care provider to a significant other at home: No Do you presently have visiting nurse or other home services: No Patient Tobacco Use Status: Current everyday Tobacco user Tobacco use type: Cigarette Cigarettes Per Day: 2 Smoked in Last 30 Days: Yes Second Hand Smoke Exposure: No Use of substances other than those prescribed or required for medical reasons: No Substance Use Type: Marijuana Have you been hit, kicked, punched, or otherwise hurt by someone within the past year? 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 Tracing not available Airway Mallampati Class: III TM Dist: >3cm Neck ROM: Full Partial: Upper Heart: RRR Lungs: CTAB Assessment and Plan Assessment Anesthesia Assessment: Anesthesia Plan Discussed, Smoking Cess. Discussed and PAT Visit Final Anesthetic Review Family History of Problems with Anesthesia: No History of Problems with Anesthesia: No Documented by User: Latesha Orr MD 12/05/24 07:02 [facility] Past Medical History Medical History Anxiety Osteoarthritis Vitamin D deficiency Arthritis Surgical History Surgical History History of bladder suspension procedure Hx of umbilical hernia repair Hx of hysterectomy Social History Social History Household Members Other:: brother Housing: House Are you a primary direct care provider to a significant other at home: No Do you presently have visiting nurse or other home services: No Patient Tobacco Use Status: Current everyday Tobacco user Tobacco use type: Cigarette Cigarettes Per Day: 2 Smoked in Last 30 Days: Yes Second Hand Smoke Exposure: No Use of substances other than those prescribed or required for medical reasons: No Substance Use Type: Marijuana Have you been hit, kicked, punched, or otherwise hurt by someone within the past year? 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
[2024-11-02 15:41] LABS: MRSA Nasal PCR NEGATIVE (Negative); SA Nasal PCR POSITIVE (Negative)
[2024-12-05] VITALS (19 sets, daily range): BP systolic 104–143; BP diastolic 42–109; PULSE 55–116; RESP 14–22; TEMP 36.1–36.9; O2SAT 97–100; BMI 32.2
--- NOTE | ~2024-12-05 | XR_ITS ---
EXAMINATION: XR PELVIS 1-2 VIEWS HISTORY: s/p Left HORTENSIA COMPARISON: Correlation is made with plain films of the left hip dated 11/30/2024. FINDINGS: A single AP portable view of the lower pelvis is submitted from the operating room at 11:22 AM The patient is status post total hip arthroplasty. The orthopedic elements are in anatomic alignment on this single AP view. Postoperative changes are noted in the soft tissues. XR/XR pelvis 1-2V IMPRESSION: Status post left hip arthroplasty. Electronically signed by: Thee Hall MD 12/05/2024 11:41 AM ADDIE
[2024-12-05] MEDS: oxyCODONE HCl ER 10 MG TAB.ER.12H PO ×2 (06:38→21:03)
[2024-12-05] MEDS: Lactated Ringers 1,000 ML 100 ML IVCONT ×3 (06:39→20:57)
[2024-12-05 07:04] LABS: Hematocrit 37.9 % (37.0-47.0); Hemoglobin 12.3 g/dl (12.0-16.0); Mean Corpuscular HGB Conc 32.5 g/dl (31.0-35.0); Mean Corpuscular Hemoglobin 32.8 pg (27.0-33.0); Mean Corpuscular Volume 101.1 fL (80.0-98.0); Mean Platelet Volume 9.6 fL (9.4-12.3); Platelet Count 206 X10*3/uL (160-400); Red Blood Count 3.75 X10*6/uL (4.20-5.50); Red Cell Distribution Width 12.3 % (11.0-16.0); White Blood Count 5.2 X10*3/uL (4.8-10.8)
[2024-12-05 07:10] LABS: Anion Gap 12 (12-20); Blood Urea Nitrogen 11 mg/dL (9-16); Calcium 9.1 mg/dL (8.4-10.2); Carbon Dioxide 24 mmol/L (22-29); Chloride 109 mmol/L (96-108); Creatinine Clr Calc Pharmacy 103.2; Estimated Glomerular Filt Rate > 60; Glucose Fasting 93 mg/dL (60-99); Potassium 3.9 mmol/L (3.3-5.1); Sodium 141 mmol/L (135-145)
[2024-12-05] MEDS: ceFAZolin Sodium/Dextrose,Iso 2 GM/50 ML PIGGYBACK IV ×2 (07:30→13:36)
--- NOTE | 2024-12-05 07:30 | MHC.SHP ---
Pre-Procedural Eval Section A - 24 Hr Update-Section A only Date of Service: 12/05/24 The patient is an INPATIENT: No Changes since office visit: No Cold of Flu in the past 2 weeks, No New Medical Problems, No Changes in Medication and No Patient answered all questions The patient has been examined within 24 hours of the surgical procedure. The History & Physical has been completed within 30 days and I have reviewed it.: Yes Section B - Complete if H&P > 30 days Chief Complaint: Unilateral primary osteoarthritis, left hip Allergies: Allergies Allergy/AdvReac Type Severity Reaction Status Date / Time No Known Allergies Allergy Verified 12/05/24 06:22 Plan I have reviewed the history and physical and performed a pertinent physical examination on my patient. No changes have occurred unless specified. Time Spent With Patient Time: Total time managing care of this patient today ____ minutes.
--- NOTE | 2024-12-05 09:24 | P.BOP_ITS ---
Brief Operative Note Date of Service: 12/05/24 Pre-op diagnosis: Left hip OA Post-op diagnosis: same Procedure: Left HORTENSIA Implants: Clark Trident2 44; Accolade2 #3 127 +/ceramic Surgeon: Magnus Staton MD Anesthesia: GETA and local Was an Transformer Builder used for this Procedure?: Yes Transformer Builder: Catherine Mauro Estimated blood loss (mL): 200 IV fluids (mL): 1,000 Pathology: other Condition: stable Disposition: PACU
--- NOTE | 2024-12-05 09:26 | W.PM.OPN ---
Operative Note Operative Note Date of Service: 12/05/24 Narrative: Date of Service: 12/05/24 Pre-op diagnosis: Left hip OA Post-op diagnosis: same Procedure: Left HORTENSIA Implants: Hagerman Trident2 44; Accolade2 #3 127 +4/32/ceramic Surgeon: Magnus Staton MD Anesthesia: GETA and local Was an Geotechnical Field Technician used for this Procedure?: Yes Geotechnical Field Technician: Catherine Mauro Estimated blood loss (mL): 200 IV fluids (mL): 1,000 Pathology: other Condition: stable Disposition: PACU Procedure in detail: Patient was brought into the operating room and placed in the right lateral decubitus position. All bony prominences were well padded and the limb was prepped and draped in standard sterile fashion. A time-out was called to identify proper site procedure proper surgeon IV antibiotics and 1 g of tranexamic acid were administered. I began by making a curvilinear incision over the posterolateral aspect of the greater trochanter. Dissection was taken down to the tensor fascia which was incised in line with the incision and a Charnley retractor was placed. Cautery was used to maintain hemostasis. The hip was internally rotated and the external rotators were identified. The vessels were cauterized and a full-thickness capsular/external rotator layer was developed starting just proximal to the piriformis. This layer was tagged and a dull Hohmann retractor was placed underneath the neck in the hip was dislocated. A neck cut was made 1 cm proximal to the lesser trochanter and the head and neck were removed and measured 41mm on the back table. The head partially eburnated. I then removed the labrum and cauterized the fovea. I started with a 40 reamer and medialized to the inner table. I sequentially reamed up to a size 44 and impacted a 44mm cup at 45 degrees of inclination and 25 degrees of version. I then placed a liner and turned my attention to the femur. I identified the piriformis insertion and used this as a starting point for my elizabet cutter. The medius tendon was protected with a Hibs retractor. A Charnley awl was inserted in the canal and a curved curette used to remove the lateral bone. I irrigated copiously. I then sequentially broached in the patient's natural version to a size 3 and placed my trial implants. I used a #3/127/+4 based on my pre-operative template. The was stable at all ranges. The 3 broach was 1cm proxiimal to lesser and a #4 would have been unaturally proud. A 0 was not sufficiently stable and so a +4 was selected. I removed all instrumentation and copiously irrigated. I placed my final femoral implant and again took the hip through range of motion and was satisfied with the stability and length. The final +4 ceramic head was impacted in place and the hip reduced. I then irrigated copiously and placed 1 g of local tranexamic acid. I performed a capsular closure with 2.0 fiberwire, Ricardo's fascia with 0 Vicryl, subcuticular with 2-0 Vicryl and the skin with emily. Patient was placed into a sterile dressing. Patient was extubated brought to the recovery room in stable condition. There were no known complications.
[2024-12-05] MEDS: Ketorolac Tromethamine 15 MG/ML VIAL IVPUSH (09:46)
[2024-12-05] MEDS: fentaNYL citrate/PF 100 MCG/2 ML VIAL 50 MCG IVPUSH (09:50)
[2024-12-05] MEDS: HYDROmorphone HCl 0.5 MG/0.5 ML SYRINGE 0.25 MG IVPUSH (10:06)
--- NOTE | 2024-12-05 10:06 | PHA.MEDREC ---
Addendum entered by Jimenez Wise RPh 12/05/24 10:11: Reviewed by [facility] Original Note: Pharmacy Consult ? Medication Reconciliation Pharmacy has completed the medication reconciliation.
[2024-12-05] MEDS: HYDROmorphone HCl 0.5 MG/0.5 ML SYRINGE IVPUSH (10:43)
--- NOTE | 2024-12-05 12:46 | MHC.CM.PN ---
PT DCD HOME SELF CARE
--- NOTE | 2024-12-05 13:22 | MHC.CM.PN ---
PT LIVES WITH BROTHER SHE IS INDEPENENT AND WORKING IT IS EXPECTED THAT PT WILL GO HOME WITH [facility] PT HAS OWN RIDE HOME DC PLAN HOMEM W/[facility]
[2024-12-05] MEDS: oxyCODONE HCl Immed Release 5 MG TABLET PO ×2 (13:36→19:27)
[2024-12-05] MEDS: Docusate Sodium 100 MG CAPSULE PO (21:02)
[2024-12-05] MEDS: Celecoxib 200 MG CAPSULE PO (21:02)
[2024-12-06 03:42] VITALS: BP 99/50; PULSE 58; RESP 18; TEMP 36.2; O2SAT 97
[2024-12-06] MEDS: oxyCODONE HCl Immed Release 5 MG TABLET PO ×2 (03:56→07:52)
[2024-12-06 03:59] VITALS: RESP 18
[2024-12-06 06:15] LABS: MANUAL DIFF FLAG NO
[2024-12-06] MEDS: Lactated Ringers 1,000 ML 100 ML IVCONT (06:17)
[2024-12-06 06:27] LABS: Basophils Percent Auto 0.4 % (0-2); Eosinophils Percent Auto 0.4 % (0-4); Hematocrit 27.4 % (37.0-47.0); Hemoglobin 9.2 g/dl (12.0-16.0); Imm Gran Abs Auto 0.04 X10*3/uL (0.00-0.03); Imm Gran Pct Auto 0.5 % (0.0-0.4); Lymphocytes Absolute Auto 3.5 X10*3/uL (1.2-4.9); Lymphocytes Percent Auto 41.2 % (20-40); Mean Corpuscular HGB Conc 33.6 g/dl (31.0-35.0); Mean Corpuscular Hemoglobin 33.7 pg (27.0-33.0); Mean Corpuscular Volume 100.4 fL (80.0-98.0); Mean Platelet Volume 9.8 fL (9.4-12.3); Monocytes Absolute Auto 0.7 X10*3/uL (0.1-1.2); Monocytes Percent Auto 7.9 % (2-11); Neutrophils Absolute Auto 4.2 x10*3/uL (2.0-8.3); Neutrophils Percent Auto 49.6 % (45-73); Platelet Count 144 X10*3/uL (160-400); Red Blood Count 2.73 X10*6/uL (4.20-5.50); Red Cell Distribution Width 12.3 % (11.0-16.0); White Blood Count 8.4 X10*3/uL (4.8-10.8)
[2024-12-06 06:42] LABS: Anion Gap 9 (12-20); Blood Urea Nitrogen 9 mg/dL (9-16); Carbon Dioxide 26 mmol/L (22-29); Chloride 109 mmol/L (96-108); Creatinine Clr Calc Pharmacy 113.5; Estimated Glomerular Filt Rate > 60; Glucose Fasting 96 mg/dL (60-99); Potassium 3.9 mmol/L (3.3-5.1); Sodium 140 mmol/L (135-145)
[2024-12-06 07:44] VITALS: BP 110/60; PULSE 64; RESP 16; TEMP 36.7; O2SAT 98
[2024-12-06] MEDS: Aspirin 325 MG TABLET PO (07:52)
[2024-12-06] MEDS: oxyCODONE HCl ER 10 MG TAB.ER.12H PO (07:53)
[2024-12-06] MEDS: Celecoxib 200 MG CAPSULE PO (07:53)
[2024-12-06] MEDS: Docusate Sodium 100 MG CAPSULE PO (07:53)
--- NOTE | 2024-12-06 08:57 | P.DS_ITS ---
DS: Providers Provider Date of Service: 12/06/24 Date of discharge: 12/06/24 Primary care physician: Gerda Pak DS: Diagnosis Discharge Diagnosis (1) Status post left hip replacement: Status: Acute DS: Summary Hospital Course Hospital Course: The patient underwent a successful left total hip arthroplasty on 12/05/24, was transferred to PACU and then to the floor to recover. During their stay, their vitals were stable, afebrile at 98.0 . Labs were unremarkable, H/H 9.2/27.4. POD 1 he was started on ASA 325mg tabs po bid a day for DVT ppx, they also received Physical Therapy services twice a day. Physical therapy should include gait training, core and lumbar strength, glute strength. Posterior precautions intact. WBAT. Prior to discharge, bandage clean dry and intact,. The Aquacel dressing should remain intact and dry at all times. Any concerns with the dressing, please contact orthopedic office. No showering. The plan is to be discharged home with vna Time Attestation Discharge Coordination Time (in mins): 30 Quality: Safe Use of Opioids Does Pt have an Active Cancer Diagnosis on the Problem List?: No Quality: Stroke Does the patient have a stroke diagnosis?: No Physical Exam Vital Signs: Vital Signs: Last Vital Signs Temp 98.0 F 12/06/24 07:44 Pulse 64 12/06/24 07:44 Resp 16 12/06/24 07:44 BP 110/60 12/06/24 07:44 Pulse Ox 98 12/06/24 07:44 O2 Del Method Room Air 12/06/24 07:44 O2 Flow Rate 2 12/05/24 10:08 BMI result Body Mass Index 32.2 DS: Data Data Completed and Pending Pending studies at discharge: Pending at discharge 12/05/24 09:09 Surgical [PTH] Routine Labs on day of discharge: Laboratory Results - last 24 hr 12/06/24 05:37 WBC 8.4 RBC 2.73 L D Hgb 9.2 L D Hct 27.4 L D MCV 100.4 H MCH 33.7 H MCHC 33.6 RDW 12.3 Plt Count 144 L D MPV 9.8 Immature Gran % (Auto) 0.5 H Neut % (Auto) 49.6 Lymph % (Auto) 41.2 H Rutland % (Auto) 7.9 Eos % (Auto) 0.4 Baso % (Auto) 0.4 Lymph # (Auto) 3.5 [place] # (Auto) 0.7 Eos # (Auto) 0.0 Baso # (Auto) 0.0 Abs Immat Gran (auto) 0.04 H Absolute Neuts (auto) 4.2 Absolute Nucleated RBC 0.000 Nucleated RBC % (auto) 0.0 Sodium 140 Potassium 3.9 Chloride 109 H Carbon Dioxide 26 Anion Gap 9 L BUN 9 Creatinine 0.50 Estim Creat Clear Calc 113.5 Estimated GFR > 60 Fasting Glucose 96 Calcium 8.0 L D Discharge Plan Discharge Patient Disposition: Home Health Service Referrals: Catherine Mauro PA-C [Physician Web Development Director] - 2 Weeks (12/20/24 12:30 [facility] Orthopedic Surgeons Catherine Mauro PA-C) Discharge Medications: New acetaminophen 325 mg Tablet 650 mg PO Q6H PRN (Reason: Pain, Mild 1-3,Fever,Headache) 210 Days Qty: 240 0RF aspirin 325 mg Tablet 325 mg PO BID 42 Days Qty: 84 0RF celecoxib 200 mg Capsule 200 mg PO BID 30 Days Qty: 60 0RF docusate sodium 100 mg Capsule 100 mg PO BID 14 Days Qty: 28 0RF oxycodone 5 mg Tablet 5 mg PO Q4H PRN (Reason: Pain, Moderate(Pain Scale 4-6)) 7 Days Qty: 42 0RF Rx Instructions: Partial Fill upon patient request. Discharge Orders: Discharge Order (Routine); Ordered 12/06/24 Ordered By: Gracie Pineda Diet: Regular diet Activity on Discharge: Use cane or walker Activity Restrictions/Additional Instructions: * Physical Therapy for Total hip arthroplasty: wbat, posterior precautions, gait training, ROM, strength * Limit stair climbing * No showering, no tub bath-keep dressing clean, dry and intact * No driving x6 weeks * Continue Aspirin twice a day x 6 weeks * Follow up with [facility] Orthopedics in 2 weeks: Print Language: Stateless
--- NOTE | 2024-12-06 08:59 | W.MHC.F2F ---
Service Date Service Date: 12/06/24 Encounter Date of encounter: 12/06/24 Reasons for Services Signs and symptoms assessed: Weakness, poor balance, poor gait mechanics Reason for physical therapy: home safety and mobility, restore joint function and ADL training Reason for occupational therapy: home safety and mobility, restore joint function, gait/transfer training, ADL training and energy conservation Homebound: Leaving the home is medically contraindicated at this time without the asist of a device and/or another person due th the listed conditions above and below. Reason homebound: unsteady gait / fall risk, pain with ambulation and unable to drive Homebound supporting statement: Pt. is considered home bound due to recent surgery. Unable to drive, poor balance, poor gait mechanics. Certification: Based on the above findings, I certify that this patient is confined to the home and needs intermittent intermediate care, physical therapy and/or speech therapy, or continues to need occupational therapy. The patient is under my care, and I have initiated the establishment of the plan of care. The patient will be followed by a physician who will periodically review the plan of care. Time Spent With Patient Time: Total time managing care of this patient today ____ minutes.
--- NOTE | 2024-12-06 09:26 | MHC.CM.PN ---
PT TO DC HOME TODAY WITH [facility] VIA PRIVATE TRANSPORT
--- NOTE | 2024-12-06 10:33 | HO.POSTANES ---
Post Anesthesia Evaluation Post Anesthesia Evaluation Date of Service: 12/06/24 Vital Signs: Vital Signs Temp Pulse Resp BP Pulse Ox O2 Del Method 12/06/24 07:44 98.0 F 64 16 110/60 98 Room Air 12/06/24 03:59 18 12/06/24 03:42 97.2 F 58 18 99/50 L 97 Room Air 12/05/24 23:54 18 12/05/24 23:00 97.4 F 67 18 104/52 L 97 Room Air Anesthesia: General Endotracheal-GETA Mental Status: Awake Pain Control: Satisfactory Nausea/Vomiting: Mild Hydration: Adequate Anesthesia-Related Issues: No Anes. Related Issues
[2024-12-06 11:59] VITALS: PULSE 64; RESP 16; TEMP 36.7; O2SAT 99
[2024-12-06 12:04] VITALS: BP 127/83; PULSE 80; RESP 16; TEMP 36.6; O2SAT 94
== END 2024-12-06 13:16 | disposition home health service (06) ==
LOC: HO.SSS 05:38 → HO.S3 09:37
PROVIDERS: Nurse Practitioner; Physician Assistant; PCP Registered Nurse Diabetes Educator; Visit Provider Orthopaedic Surgery
PROC: (CPT 27130; principal; 2024-12-05 07:30)
DX: M16.12 Unilateral primary osteoarthritis, left hip (principal); R26.2 Difficulty in walking, not elsewhere classified; G89.29 Other chronic pain; M25.552 Pain in left hip; M17.11 Unilateral primary osteoarthritis, right knee; E55.9 Vitamin D deficiency, unspecified; F41.9 Anxiety disorder, unspecified; E66.811 Obesity, class 1; Z68.33 Body mass index [BMI] 33.0-33.9, adult; I83.93 Asymptomatic varicose veins of bilateral lower extremities; Z79.82 Long term (current) use of aspirin; Z79.899 Other long term (current) drug therapy; F17.210 Nicotine dependence, cigarettes, uncomplicated; Z98.890 Other specified postprocedural states
CPT/HCPCS: 27130; 36415; 72170; 80048; 85025; 85027; 86850; 86900; 86901; 87640; 87641; 88304; 88311; 97116; 97161; 97165; C1776; J0131; J0690; J1100; J1171; J1596; J1885; J2003; J2250; J2405; J2704; J2795; J3010; J7120

== ENCOUNTER → 2024-12-05 05:37 | Outpatient (BNV) | payer OTHER, SELFPAY | PROVIDERS: Visit Provider Orthopaedic Surgery | DX: M16.12 Unilateral primary osteoarthritis, left hip (principal) | CPT/HCPCS: 27130 ==

== ENCOUNTER 2024-12-20 11:59 | Outpatient (AMB) | payer OTHER, SELFPAY ==
--- NOTE | 2024-12-20 12:31 | A.OFFVIS_ITS ---
Intake Visit Reasons: 2WK PO: L HORTENSIA w/NE 12/05/24 Intake Note: Cristina is a 54 year old female who presents today for a post op appointment s/p left total hip arthroplasty 12/05/24 NE. Patient reports she is doing well and she is able to move around with a cane. Next appt. w/ NE 01/10 @ 12:30PM Allergies No Known Allergies Allergy (Verified 12/20/24 12:35) HPI HPI 2WK PO: L HORTENSIA w/NE 12/05/24: Details: Ms. Weldon is a 54-year-old female who presents to the office today status post left total hip arthroplasty with Dr. Staton performed on 12/05/2024. Patient reports that she was unable to participate in home [facility]NA services due to high deductibles and copays. However, she reports that the [facility]NA were able to send her a link with the physical therapy exercises that were needed. She is been performing these exercises and overall doing very well. She is ambulating with the use of a cane. [facility] Medical History Anxiety Osteoarthritis Vitamin D deficiency Arthritis Surgical History History of bladder suspension procedure Hx of umbilical hernia repair Hx of hysterectomy Social History Household Members Other:: brother Housing: House Are you a primary infant childcare provider to a significant other at home: No Do you presently have visiting nurse or other home services: No 75 years or older and lives alone: No Patient Tobacco Use Status: Current everyday Tobacco user Tobacco use type: Cigarette Cigarettes Per Day: 1 Second Hand Smoke Exposure: No Substance Use Type: Marijuana service: No Current occupational status: employed 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 Lauryn intact. Able to perform straight leg raise. Good internal external rotation. NVI. Assessment & Plan Assessment & Plan (1) Status post left hip replacement: Code(s): Z96.642 - Presence of left artificial hip joint Category: Surgical Plan Ms. Weldon is a 54-year-old female who presents to the office today status post left total hip arthroplasty with Dr. Staton performed on 12/05/2024. Patient reports that she was unable to participate in home VNA services due to high deductibles and copays. However, she reports that the VNA were able to send her a link with the physical therapy exercises that were needed. She is been performing these exercises and overall doing very well. She is ambulating with the use of a cane. While in the office today, lauryn removed and Steri-Strips were applied. We did discuss the role of outpatient physical therapy however patient is financially restricted an attending outpatient appointments. She will continue with her home exercise program using the length provided by the VNA. She will follow up in [address] Staton, sooner if needed. Coding Level of Care Code Global (46604) Diagnoses Status post left hip replacement Z96.642
--- OUTSIDE RECORDS SUMMARY | 2024-12-20 14:30 | XMS_ITS | Encounter Summary ---
Author Organization [facility] Address [address] [place] [address] Care Team Providers Care Petrography Teacher Name Role Phone [place] NP Primary Care Provider [phone] Encounter Details Date Type Department Care Team (Latest Contact Info) Description 11/29/2024 2:20 PM EST Telemedicine Visit [facility] [id number] [place] [address] Lata Grove NP [address] 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. It was conducted in a private space to protect HIPPA sensitive information. Precautions were takento provide confidentiality and security and patient was made aware of privacy considerations. The patients location was obtained and is Pts home The patient was notified that the services were being provided from [facility]). The patient was notified how they can see a clinician in- person in the event of an emergency or if otherwise needed. Visit START TIME 247p END TIME 254p Competency Evaluated Nurse Aide used during visit? No Pt having technical [...] feelings of depression reported. Pharmacy location is [facility] Depression screening:DEPRESSION FU PROVIDED ( CMS-2): Counseling [...] documented as of this encounter Care Teams Petrography Teacher Relationship Specialty Start Date End Date Lata [place] NP [address] [place] [address] PCP - General Internal Medicine 07/14/22 documented as of this encounter
--- OUTSIDE RECORDS SUMMARY | 2024-12-20 14:30 | XMS_ITS | Clinical Summary ---
Author Organization [facility] Address [address] [place] [address] Care Team Providers Care Pecan Grower Name Role Phone [place] TONY Primary [...] days 14 Tablet 11/29/19 25 025 Active Problems Problem Noted Date Diagnosed Date Osteoarthritis of right knee 08/20/2024 Class 1 obesity due to exces s calories with serious comorbidity and body mass index (BMI) of 33.0 to 33.9 in adult 08/20/2024 Varicose veins of both lower extremities 024 Chronic left hip pain 02/08/2024 Primary osteoarthritis of left hip 02/08/2024 Overview (08/20/2024): 08/20/24: [place] , going to [facility] she will have surgery post therapy in 2 week [facility]. Vitamin D deficiency 01/04/2021 Arthritis 07/17/2019 Overview (10/07/2022): 10/07/22: Xray of hip shows arthritis, treatment includes. She will like to hold off on inj and surgery at this time. Taking naproxen when pain is severe Encounters Date Type Department Care Team Description 11/29/2024 2:20 PM EST Telemedicine Visit [facility] [address] [place] [phone] L[place] Grove, NUTRITION INTERN Chronic frontal sinusitis (Primary Dx) 11/05/2024 2:00 PM EST Office Visit [facility] [address] [place] [phone] [place], NUTRITION INTERN Primary osteoarthritis of left hip (Primary Dx) 11/05/2024 Travel 10/08/2024 3:20 PM EST Office Visit 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 Not on file Not on file Last Filed Vital Signs Vital Sign Reading [...] - Cp G 2-dose series) 03/07/2024 02/08/2024 [id number] (2 - 2023- season) 2024 021 Depression Monitoring 02/26/2025 11/29/2024 [...] Procedure Name Priority Date/Time Associated Diagnosis Comments REFERRAL SCANNED DOCUMENT 11/30/2024 3:00 AM EST IMAGING SCANNED DOCUMENT 11/30/2024 3:00 AM EST IMAGING SCANNED DOCUMENT 11/30/2024 3:00 AM EST CARD SCANNED DOCUMENT 11/06/2024 3:00 AM EST [...] of both lower extremities, unspecified whether complicated COMPREHENSIVE METABOLIC PANEL Routine 06/11/2024 3:43 PM [...] Recently Relevant to Health Maintenance Results * REFERRAL SCANNED DOCUMENT (11/30/2024 3:00 AM EST) 11/30/2024 3:00 AM EST [place] NP SCAN REFERRAL Final Result * IMAGING SCANNED DOCUMENT (11/30/2024 3:00 AM EST) Only the most recent of2 resultswithin the time period is included. 11/30/2024 3:00 AM EST us Lata Grove NUTRITION INTERN SCAN IMAGING Final Result * CARD SCANNED DOCUMENT (11/06/2024 3:00 AM EST) 11/06/2024 3:00 AM EST us [place] NUTRITION INTERN SCAN ECGS Final Result * (ABNORMAL) LIPID PANEL (11/05/2024 2:29 PM EST) CHOLESTEROL, TOTAL 140 <200 mg/dL [employer] [facility] HDL CHOLESTEROL 49(L) > OR = 50 mg/dL 71lbs TRIGLYCERIDES 83 <150 mg/dL 71lbs LDL-CHOLESTEROL 74 99 mg/dL (calc) 71lbs Comment: Reference range: <100 Desirable range <100 mg/dL for primary prevention; ?? <70 mg/dL for patients with CHD or diabetic patients with > or = 2 CHD risk factors. LDL-C is now calculated using the Gildardo-Renzo calculation, which is a validated novel method providing better accuracy than the Friedewald equation in the estimation of LDL-C. Gildardo RENTERIA et al. SHANTEL. 2013;310(19): 8966-7833 (http://education.Azingo/faq/IOF730) CHOL/HDLC RATIO 2.9 <5.0 (calc) 71lbs NON-HDL CHOLESTEROL 91 <130 mg/dL (calc) 71lbs Comment: For patients with diabetes plus 1 major ASCVD risk factor, treating to a non-HDL-C goal of <100 mg/dL (LDL-C of <70 mg/dL) is considered a therapeutic option. Blood Blood / Unknown 11/05/2024 2 :29 PM EST 11/05/2024 2:30 PM EST Narrative [employer] - 11/06/2024 5:30 AM EST FASTING:NO [place] NUTRITION INTERN LAB - BLOOD DRAW Final Resul t [facility] [address] [address], [facility] [address] [place] [address] * (ABNORMAL) URINE CULTURE W ID & SENS (10/08/2024 3:16 PM EST) CULTURE See Note(A) 71lbs Comment: ??CULTURE, URINE, ROUTINE ?Micro Number: ?[id number] ??Test Status: ? Final ??Specimen Source: ?? [...] EST 10/09/2024 3:56 AM EST [place] NUTRITION INTERN LAB - NO BLOOD DRAW Final Re sult [employer] [address] [address], [facility] [address] [address] * (ABNORMAL) URINALYSIS, COMPLETE W/REFLEX TO CULTURE (10/08/2024 3:16 PM EST) COLOR YELLOW YELLOW [facility] APPEARANCE CLOUDY(A) CLEAR 71lbs SPECIFIC GRAVITY 1.012 1.001 - 1.035 [employer] URINE PH 6.0 5.0 - 8.0 [facility] [place] [employer] GLUCOSE NEGATIVE NEGATIVE [facility] BILIRUBIN NEGATIVE NEGATIVE [facility] KETONES NEGATIVE NEGATIVE [facility] OCCULT BLOOD 1+(A) NEGATIVE [facility] URINE PROTEIN NEGATIVE NEGATIVE [facility] NITRITE POSITIVE(A) NEGATIVE [facility] LEUKOCYTE ESTERASE 3+(A) NEGATIVE [facility] URINE LEUKOCYTES 20-40(A) 0 - 5 /HPF [facility] RBC 3-10(A) 0 - 2 /HPF [facility] SQUAMOUS EPITHELIAL CELLS 6-10(A) < OR = 5 /HPF [facility] BACTERIA MANY(A) NONE SEEN [facility] HYALINE CAST NONE SEEN NONE SEEN [facility] SEE NOTE See Below [facility] Comment: This urine was analyzed for the presence of WBC, RBC, bacteria, casts, and other formed elements. Only those elements seen were reported. Urine Urine specimen / Unknown 10/08/2024 3:16 PM EST 10/09/2024 3:56 AM EST [place] NP LAB - NO BLOOD DRAW Edited [facility] Performing Organization Address City/[facility]/ZIP Co de Phone Number [facility] [address] [address], [facility] [address] [address] * RFLX - REFLEXIVE URINE CULTURE (10/08/2024 3:16 PM EST) REFLEXIVE URINE CULTURE See Below [email or web address] [facility] Comment:CULTURE INDICATED - RESULTS TO FOLLOW 10/08/2024 3:16 PM EST 10/09/2024 3:56 AM EST [place] NP LAB - NO BLOOD DRAW Edited [facility] Performing Organization Address [facility]/ZIP Co de Phone Number [facility] [address] [address], [facility] [address] [address] * (ABNORMAL) URINALYSIS, MULTISTIX (POCT) (10/08/2024 3:07 PM EST) URINE GLUCOSE NEGATIVE NEGATIVE [facility] BACK OFF[facility] POCT URINE BILIRUBIN NEGATIVE NEGATIVE [facility]- BACK OFFICE POCT URINE KETONES NEGATIVE NEGATIVE [facility]- BACK OFFICE POCT URINE SPECIFIC GRAVITY 1.025 <=1.005 - >=1.030 [facility]- BACK OFFICE POCT URINE BLOOD TRACE HEMOLYZED(A) NEGATIVE [facility]- BACK [facility] POCT URINE PH 5.5 5.0 - 8.5 [facility]- BACK [facility] POCT URINE PROTEIN Negative Negative [facility]- [facility] POCT URINE UROBILINOGEN 0.2 0.2 - 1.0 E.U./dL [facility]- BACK [facility] POCT URINE NITRITE NEGATIVE NEGATIVE [facility]- BACK [facility] POCT URINE LEUKOCYTES MODERATE(A) NEGATIVE [facility]- BACK OFFICE POCT URINE COLOR YELLOW STRAW, YELLOW [facility]- BACK OFF[facility] POCT ODOR URINE Normal Normal [facility]- BACK OFF[facility] POCT CLARITY OF URINE CLOUDY(A) CLEAR CAR ING [facility]- BACK OFFICE POCT Urine Urine specimen / Unknown 10/08/2024 3:07 PM EST Result [facility] [place] NP LAB - NO BLOOD DRAW Final Re sult [facility]- BACK OFFICE POCT * REFERRAL TO VASCULAR SURGERY (10/08/2024 3:00 AM EST) 10/08/2024 3:00 AM EST [place] NP REFERRAL Final Result * (ABNORMAL) COMPREHENSIVE METABOLIC PANEL (06/11/2024 3:43 PM EDT) GLUCOSE 97 65 - 99 mg/dL [employer] Comment: ?Fasting reference interval UREA NITROGEN (BUN) 12 7 - 25 mg/dL 71lbs CREATININE (blood) 0.47(L) 0.50 - 1.03 mg/dL [employer] EGFR 112 > OR = 60 mL/min/1. 73m2 71lbs BUN/CREATININE RATIO 26(H) 6 - 22 (calc) 71lbs SODIUM 138 135 - 146 mmol/L 71lbs POTASSIUM 3.9 3.5 - 5.3 mmol/L 71lbs CHLORIDE 106 98 - 110 mmol/L [facility] CARBON DIOXIDE 27 20 - 32 mmol/L [facility] CALCIUM 9.1 8.6 - 10.4 mg/dL [facility] PROTEIN, TOTAL 6.8 6.1 - 8.1 g/dL [facility] ALBUMIN 4.1 3.6 - 5.1 g/dL [facility] GLOBULIN 2.7 1.9 - 3.7 g/dL (calc) [facility] ALBUMIN/GLOBULI N RATIO 1.5 1.0 - 2.5 (calc) [facility] BILIRUBIN, TOTAL 0.3 0.2 - 1.2 mg/dL [facility] ALKALINE PHOSPHATASE 105 37 - 153 U/L [facility] AST 15 10 - 35 U/L [facility] ALT 9 6 - 29 U/L [facility] Blood Blood / Unknown 06/11/2024 3 :43 PM EDT 06/11/2024 3:43 PM EDT [place] NUTRITION INTERN LAB - BLOOD DRAW Edited Resu lt - Final [facility] [address] [address], [facility] [address] [address] * REFERRAL FOR MAMMOGRAM (03/30/2024 3:00 AM EDT) 03/30/2024 3:00 AM EDT Esther Dumont PA-C IMG RFL MAMMO Edited Resul t - Final * HIV 1/2 AG & AB W/RFLX (4TH GEN) (10/07/2022 3:21 PM EST) HIV AG/AB, 4TH GEN NON-REAC TIVE NON-REAC TIVE [facility] Comment: HIV-1 antigen and HIV-1/HIV-2 antibodies were [...] ?? For additional information please refer to http://education.Swyft/faq/ZSX857 (This link is being provided for informational/ educational purposes only.) The performance of this assay has not been clinically validated in patients less than 2 years old. Blood Blood / Unknown 10/07/2022 3 :21 PM EST 10/07/2022 3:22 PM EST Narrative [employer] [facility] [employer] [facility] - 10/10/2022 7:54 AM EST COLLECTION KIT GIVEN TO PATIENT. PATIENT ADVISED TO RETURN. [place] NP LAB - BLOOD DRAW Final Resul t [facility] [address] [address], [facility] [address]) [place] [address] * HEPATITIS C DIAGNOSTIC (LLMM) (12/15/2020 10:59 AM EST) HEPATITIS C VIRUS DIAGNOSTIC NEGATIVE NEGATIVE [facility] 12/15/2020 10:5 9 AM EST 12/15/2020 4:00 PM EST Narrative [employer] - 12/15/2020 5:50 PM EST [employer], [place] [address] [employer] - Pat Ferrer MD PT ID [id number] ORD# [id number] Esther Dumont PA-C LAB - BLOOD DRAW Edited Resu lt - Final [employer] [address], from Last 3 Months or Most Recently Relevant to Health Maintenance Insurance [employer] Care Teams Pecan Grower Relationship Specialty Start Date End Date [place] NP [address] [place] [address] PCP - General Internal Medicine 07/14/22
--- OUTSIDE RECORDS SUMMARY | 2024-12-20 14:30 | XMS_ITS | Clinical Summary ---
Author Organization [facility] Address [address] [place] [address] Care Team Providers Care Twisting Press Operator Name Role Phone [place] Primary Care Provider [phone] Surgical History Surgery Date Site/Laterality Comments TUBAL LIGATION Bilateral PROCEDURE: HISTORICAL TUBAL LIGATION BLADDER SUSPENSION PROCEDURE: HISTORICAL BLADDER SUSPENSION HERNIA REPAIR PROCEDURE: HISTORICAL HERNIA REPAIR/UMB Social History Tobacco Use Types Packs/Day Years Used Date Smoking Tobacco: Every Day Smokeless Tobacco: Never Alcohol Use Standard Drinks/Week Comments Not Currently 0 (1 standard drink = 0.6 oz pur e alcohol) Comments Unknown Sex and Gender Information Value Date Recorded Sex Assigned at Not on file Legal Sex Female 10:47 PM EST Gender Identity Not on file Sexual Orientation [...] Last Done Comments Breast Cancer Screening 1968 Hepatitis B Vaccines (1 of 3 - 19+ 3-dose series) 1987 Pneumococcal Vaccine: 50+ Ye ars (1 of 2 - PCV) 1987 Pneumococcal Vaccine: Pediat rics (0 to 5 Years) and At-Risk Patients (6 to 64 Years) (1 of 2 - PCV) 1987 Cervical Cancer Screening: P ap Smear 1989 Zoster Vaccines (1 of 2) 2018 Colorectal Cancer Screening: Colonoscopy 09/26/2022 Depression Screening 09/26/2022 HIV Screening 09/26/2022 Hepatitis C Screening 09/26/2022 Social Influencers of Health Screening 09/26/2022 COVID-19 Vaccine (1 - 2023-2 5 season) 2024 Influenza Vaccine [...] patient's age to complete this topic Meningococcal B Vacine Aged Out No lo nger eligible based on patient's age to complete this topic RSV Immunization Patients Un iris 20 months Aged Out No longer eligible b ased on patient's age to complete this topic Varicella Vaccines Aged Out No longer eligible based on patient's age to complete this topic Care Teams Twisting Press Operator Relationship Specialty Start Date End Date [place] PCP - General 06/06/24
== END 2024-12-20 13:09 | disposition home or self-care (01) ==
PROVIDERS: PCP Nurse Practitioner; Visit Provider Physician Assistant
DX: Z96.642 Presence of left artificial hip joint (principal)
CPT/HCPCS: 99024